=== PATIENT | female | born 1965 | race Caucasian/White ===

== ENCOUNTER → 2017-01-27 | Outpatient (CLI) | payer BC, OTHER ==
--- NOTE | 2017-01-27 13:28 | CR ---
EXAMINATION: Abdomen HISTORY: Pain COMPARISON: 07/24/2015 TECHNIQUE: AP and upright views FINDINGS: There is no free air under the diaphragm. There is a small amount of stool and gas through out the colon and no dilated loops of small bowel identified. No organomegaly. The visualized osseou s structures appear normal. IMPRESSION: 1. No dilated loops of small bowel identified to suggest a small bowel obstruction.
== END ==
LOC: MW.CHOBGYN 09:04
PROVIDERS: ATTEND Nurse Practitioner Women's Health
DX: R10.9 Unspecified abdominal pain (principal); R11.2 Nausea with vomiting, unspecified; R39.9 Unspecified symptoms and signs involving the genitourinary system; R39.198 Other difficulties with micturition; R31.9 Hematuria, unspecified
CPT/HCPCS: 36415; 74020; 74020-26; 81001; 85025; 87086; 88104

== ENCOUNTER 2017-04-20 22:01 | Day surgery (SDC) | payer OTHER ==
[2017-04-20] MEDS ORDERED: Glucagon,Human Recombinant 1 MG Vial IVPUSH ONE (22:29)
--- NOTE | 2017-04-20 22:49 | EDM.PDOC ---
ED HPI GENERAL MEDICAL PROBLEM - General Chief Complaint: ENT Problem Stated Complaint: PT HAS DIFFICULTY SWALLOWING Time Seen by Provider: 04/20/17 22:21 Source of Information: Reports: Patient History Limitations: Reports: No Limitations - History of Present Illness INITIAL COMMENTS - FREE TEXT/NARRATIVE: HISTORY AND PHYSICAL: History of present illness: [51-year-old female with a past medical history of dozens of transient suspected esophageal obstructions, presents emergency department complaining of inability to swallow her spit since last night. At dinnertime last night patient was eating steak and bread and perceived globus sensation. Since that time she is unable to swallow her spit show she's been spitting it in a bag. In the past patient has always had spontaneous resolution of her globus sensation. She has discussed it with doctors but never had a scope or upper GI evaluation. No abdominal pain. No fevers chills sweats or shaking chills. Denies respirations symptoms of any kind. Review of systems: As per history of present illness and below otherwise all systems reviewed and negative. Past medical history: As per history of present illness and as reviewed below otherwise noncontributory. Surgical history: As per history of present illness and as reviewed below otherwise noncontributory. Social history: No reported history of drug or alcohol abuse. Family history: As per history of present illness and as reviewed below otherwise noncontributory. Physical exam: Well-appearing female no acute distress spitting in a bag no stridor tachypnea or apparent respiratory HEENT: Normocephalic, atraumatic, pupils normal and symmetrical, supple neck, no meningismus, normal color Lungs: Normal and symmetrical chest wall excursion bilateral with no tachypnea or increased work of breathing, grossly normal chest exam Heart: No tachycardia in triage Abdomen: Normal-appearing, nondistended, no visible mass or asymmetry Pelvis: Normal-appearing Genitourinary: Deferred Rectal exam: Deferred Extremities: Atraumatic, normal use and range of motion, no visible evidence of gross neurovascular compromise Neuro: Awake, alert, oriented. Normal and appropriate mental status. Cranial nerves grossly unremarkable. Motor function normal. Nonfocal neurologic exam. Diagnostics: [] Therapeutics: [Gone given] Impression: [Esophageal obstruction] Plan: [Signs and symptoms consistent with esophageal obstruction a patient with a long history of similar symptoms which spontaneously resolved. Clinically this patient has an esophageal obstruction currently which persists after glucagon administration. 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 Vital signs stable] Definitive disposition and diagnosis as appropriate pending reevaluation and review of above. throat Pain Score (Numeric/FACES): 6 - Related Data Allergies Allergy/AdvReac Type Severity Reaction Status Date / Time No Known Allergies Allergy Verified 04/20/17 22:14 Home Meds: Home Meds . [No Known Home Meds] 05/20/15 [History] Social & Family History - Tobacco Use Smoking Status *Q: Never Smoker Second Hand Smoke Exposure: No - Alcohol Use Days Per Week of Alcohol Use: 0 Number of Drinks Per Day: 0 Total Drinks Per Week: 0 - Recreational Drug Use Recreational Drug Use: No Drug Use in Last 12 Months: No ED ROS GENERAL - Review of Systems Review Of Systems: See Below (History of present illness) ED EXAM, GENERAL - Physical Exam Exam: See Below (History of present illness) Course - Vital Signs Last Recorded V/S: Last Vital Signs Temp 36.3 C 04/20/17 22:14 Pulse 76 04/20/17 22:14 Resp 16 04/20/17 22:14 BP 141/88 H 04/20/17 22:14 Pulse Ox 100 04/20/17 22:14 - Orders/Labs/Meds Orders: Active Orders 24 hr Category Date Time Status Admission Status [Patient Status] [ADT] Stat ADT 04/20/17 23:26 Ordered NPO [Nothing Per Oral Diet] [DIET] Diet 04/20/17 Breakfast Ordered Meds: Medications Discontinued Medications Generic Name Dose Route Start Last Admin Trade Name Freq PRN Reason Stop Dose Admin Glucagon 1 mg 04/20/17 22:29 04/20/17 22:56 Glucagen IVPUSH 04/20/17 22:30 1 mg ONETIME ONE Administration Departure - Departure Time of Disposition: 22:48 Disposition: Refer to Observation Condition: Good Clinical Impression: Esophageal obstruction due to food impaction - Discharge Information Referrals: PCP,None [Primary Care Provider] - - My Orders Last 24 Hours: My Active Orders 04/20/17 23:26 Admission Status [Patient Status] [ADT] Stat 04/20/17 Breakfast NPO [Nothing Per Oral Diet] [DIET] - Assessment/Plan Last 24 Hours: My Active Orders 04/20/17 23:26 Admission Status [Patient Status] [ADT] Stat 04/20/17 Breakfast NPO [Nothing Per Oral Diet] [DIET]
--- NOTE | 2017-04-20 23:38 | PCM.HP ---
H&P History of Present Illness - General Date of Service: 04/20/17 Admit Problem/Dx: Admission Diagnosis/Problem Admission Diagnosis/Problem Esophageal dysphagia Source of Information: Patient History Limitations: Reports: No Limitations - History of Present Illness Initial Comments - Free Text/Narative: Patient is a 51 year old female who presents with a food bolus obstruction for > 24 hours. She has had food stuck in the past but it has always passed. Yesterday she was eating steak when it became lodged in her esophagus. She has been trying OTC remedies with no improvement. She is now vomiting her own saliva. She had a history of heartburn, but takes no medicine for it. She has a family history of brain cancer but no GI related cancers. She has never seen anyone for this problem. throat Pain Score (Numeric/FACES): 6 - Related Data Allergies/Adverse Reactions: Allergies Allergy/AdvReac Type Severity Reaction Status Date / Time No Known Allergies Allergy Verified 04/20/17 22:14 Home Medications: Home Meds . 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: Musculoskeletal History: Reports: None Neurological History: Reports: None Psychiatric History: Reports: None Endocrine/Metabolic History: Reports: None Hematologic History: Reports: None Immunologic History: Reports: None Oncologic (Cancer) History: Reports: None Dermatologic History: Reports: None - Infectious Disease History Infectious Disease History: Reports: None - Past Surgical History GI Surgical History: Reports: Hernia, Abdominal Female Surgical History: Reports: Hysterectomy Social & Family History - Family History Family Medical History: Noncontributory - Tobacco Use Smoking Status *Q: Never Smoker Second Hand Smoke Exposure: No - Alcohol Use Days Per Week of Alcohol Use: 0 Number of Drinks Per Day: 0 Total Drinks Per Week: 0 - Recreational Drug Use Recreational Drug Use: No Drug Use in Last 12 Months: No H&P Review of Systems - Review of Systems: Review Of Systems: ROS reveals no pertinent complaints other than HPI. Exam - Exam Exam: See Below - Vital Signs Vital Signs: Last Vital Signs Temp 36.3 C 04/20/17 22:14 Pulse 76 04/20/17 22:14 Resp 16 04/20/17 22:14 BP 141/88 H 04/20/17 22:14 Pulse Ox 100 04/20/17 22:14 Weight: 103 kg - Exam General: Alert, Oriented, Mild Distress Neck: Supple, Trachea Midline, Other (No crepitus) Lungs: Clear to Auscultation, Normal Respiratory Effort Cardiovascular: Regular Rate, Regular Rhythm Abdomen: Normal Bowel Sounds, Soft. No: Peritoneal Signs, Distention, Guarding , Rigidity, Rebound, Tenderness Extremities: Normal Inspection *Q Meaningful Use (ADM) - VTE *Q VTE Criteria *Q: - Stroke *Q Stroke Criteria *Q: - AMI *Q AMI Criteria *Q: - Problem List (1) Esophageal obstruction due to food impaction SNOMED Code(s): 572511735 ICD Code: K22.2 - ESOPHAGEAL OBSTRUCTION; T18.128A - FOOD IN ESOPHAGUS CAUSING OTHER INJURY, INITIAL ENCOUNTER Status: Acute Current Visit: Yes Problem List Initiated/Reviewed/Updated: Yes Orders Last 24hrs: Active Orders 24 hr Category Date Time Status Admission Status [Patient Status] [ADT] Stat ADT 04/20/17 23:26 Active NPO [Nothing Per Oral Diet] [DIET] Diet 04/20/17 Breakfast Active Assessment/Plan Comment:: Explained that we need to take her to the OR to remove this food bolus. She may have a stricture at the area but I will not dilate it in the setting of acute obstructions. She will need follow up work up with me. We discussed the EGD procedure, perioperative course and the risks including bleeding, infection or perforation. She verbalized understanding and wishes to proceed.
[2017-04-20] MEDS ORDERED: Ondansetron 4 MG/2 ML SDV ONE (23:56)
[2017-04-20] MEDS ORDERED: Rocuronium 10 MG/ML 10 ML Syringe ONE (23:56)
[2017-04-20] MEDS ORDERED: Lidocaine 2% 5 ML SDV ONE (23:56)
[2017-04-20] MEDS ORDERED: Propofol 200 MG/20 ML SDV ONE (23:56)
[2017-04-20] MEDS ORDERED: fentaNYL 250 MCG/5 ML SDV ONE (23:57)
[2017-04-20] MEDS ORDERED: Midazolam 1 MG/ML 2 ML SDV ONE (23:57)
--- NOTE | 2017-04-21 00:03 | PCM.PREANE ---
Preanesthetic Assessment - Anesthesia/Transfusion/Family Hx Anesthesia History: Prior Anesthesia Without Reaction Other Type of Anesthesia Reaction Comment: DENIES ANY PROBLEMS WITH ANESTHESIA Family History of Anesthesia Reaction: No Transfusion History: No Prior Transfusion(s) Intubation History: Unknown - Review of Systems General: Other (difficulty swallowing) Pulmonary: No Symptoms Cardiovascular: No Symptoms Gastrointestinal: Vomiting (spitting up food particles) Neurological: No Symptoms Other: Reports: Anxiety (r/t anesthesia - questions answered) - Physical Assessment O2 Sat by Pulse Oximetry: 100 Respiratory Rate: 16 Vital Signs: Last Vital Signs Temp 97.4 F 04/20/17 22:14 Pulse 76 04/20/17 22:14 Resp 16 04/20/17 22:14 BP 141/88 H 04/20/17 22:14 Pulse Ox 100 04/20/17 22:14 Height: 5 ft 8 in Weight: 227 lb 1.218 oz ASA Class: 2E Mental Status: Alert & Oriented x3 Airway Class: Mallampati = 2 (small mouth) Dentition: Reports: Normal Dentition Thyro-Mental Finger Breadths: 3 Mouth Opening Finger Breadths: 3 ROM/Head Extension: Full Lungs: Clear to auscultation, Normal respiratory effort Cardiovascular: Regular Rate, Regular Rhythm - Allergies Allergies/Adverse Reactions: Allergies Allergy/AdvReac Type Severity Reaction Status Date / Time No Known Allergies Allergy Verified 04/20/17 22:14 - Anesthesia Plan Free Text/Narrative:: GETA with RSI - Acknowledgements Anesthesia Type Planned: General Anesthesia Pt an Appropriate Candidate for the Planned Anesthesia: Yes Alternatives and Risks of Anesthesia Discussed w Pt/Guardian: Yes Pt/Guardian Understands and Agrees with Anesthesia Plan: Yes PreAnesthesia Questionnaire HEENT History: Reports: None Cardiovascular History: Reports: None Respiratory History: Reports: None Gastrointestinal History: Reports: None Genitourinary History: Reports: None 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: Musculoskeletal History: Reports: None Neurological History: Reports: None Psychiatric History: Reports: None Endocrine/Metabolic History: Reports: None, Obesity/BMI 30+ Hematologic History: Reports: None Immunologic History: Reports: None Oncologic (Cancer) History: Reports: None Dermatologic History: Reports: None - Infectious Disease History Infectious Disease History: Reports: None - Past Surgical History GI Surgical History: Reports: Hernia, Abdominal Female Surgical History: Reports: Hysterectomy - SUBSTANCE USE Smoking Status *Q: Never Smoker Tobacco Use Within Last Twelve Months: No Second Hand Smoke Exposure: No Days Per Week of Alcohol Use: 0 Number of Drinks Per Day: 0 Total Drinks Per Week: 0 Recreational Drug Use History: No - HOME MEDS Home Medications: Home Meds . [No Known Home Meds] 05/20/15 [History] - CURRENT (IN HOUSE) MEDS Current Meds: Current Medications Discontinued Medications Fentanyl (Sublimaze) Confirm Administered Dose 250 mcg .ROUTE .STK-MED ONE Stop: 04/20/17 23:58 Glucagon (Glucagen) 1 mg IVPUSH ONETIME ONE Stop: 04/20/17 22:30 Last Admin: 04/20/17 22:56 Dose: 1 mg Lidocaine (Xylocaine-Mpf 2%) Confirm Administered Dose 5 ml .ROUTE .STK-MED ONE Stop: 04/20/17 23:57 Midazolam HCl (Versed 1 Mg/Ml) Confirm Administered Dose 2 mg .ROUTE .STK-MED ONE Stop: 04/20/17 23:58 Ondansetron HCl (Zofran) Confirm Administered Dose 4 mg .ROUTE .STK-MED ONE Stop: 04/20/17 23:57 Propofol (Diprivan 20 Ml) Confirm Administered Dose 200 mg .ROUTE .STK-MED ONE Stop: 04/20/17 23:57 Rocuronium [place] (Zem[place]) Confirm Administered Dose 100 mg .ROUTE .STK-MED ONE Stop: 04/20/17 23:57
[2017-04-21] MEDS ORDERED: Succinylcholine/Normal Saline 200 MG/10 ML Syringe ONE (00:35)
[2017-04-21] MEDS ORDERED: Dexamethasone 4 MG/ML 5 ML MDV ONE (00:42)
[2017-04-21] MEDS ORDERED: Neostigmine Methylsulfate 1 MG/ML 5 ML Syringe ONE (01:12)
--- NOTE | 2017-04-21 01:14 | PCM.OPNOTE ---
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 Unable to pass scope Pre Op Diagnosis: Food bolus impaction Post-Op Diagnosis: Food bolus impaction, esophagitis, GE junction stricture Anesthesia Technique: General ET tube Primary Surgeon: Kesha Knox Condition: Fair
[2017-04-21] MEDS ORDERED: diphenhydrAMINE 50 MG/ML SDV IVPUSH PRN (01:20)
--- NOTE | 2017-04-21 01:29 | PCM.POSTAN ---
POST ANESTHESIA ASSESSMENT - MENTAL STATUS Mental Status: alert, oriented - VITAL SIGNS Pulse Rate: 68 SaO2: 99 Resp Rate: 14 Blood Pressure: 140/78 - RESPIRATORY Respiratory Status: respiratory rate WNL, airway patent, O2 saturation stable - CARDIOVASCULAR CV Status: pulse rate WNL, blood pressure stable - GASTROINTESTINAL GI Status: no symptoms - PAIN Pain Score: 0 - POST OP HYDRATION Hydration Status: adequate & stable - OBSERVATIONS Free Text/Narrative:: Pt stable with improved nausea after benadryl and no pain at this time. No apparent anesthesia complications.
--- NOTE | 2017-04-21 02:40 | PCM48HPAN ---
Post Anesthesia Note - EVALUATION WITHIN 48HRS OF ANESTHETIC Vital Signs in Normal Range: Yes Patient Participated in Evaluation: Yes Respiratory Function Stable: Yes Airway Patent: Yes Cardiovascular Function Stable: Yes Hydration Status Stable: Yes Pain Control Satisfactory: Yes Nausea and Vomiting Control Satisfactory: Yes Mental Status Recovered: Yes - COMMENTS/OBSERVATIONS Free Text/Narrative:: states she has been able to drink water with no nausea. VSS. No apparent anesthesia complications.
[2017-04-21 03:02] VITALS: BP 134/70
--- NOTE | 2017-04-21 03:11 | OR ---
SURGEON: ULYSSES FORRESTER MD DATE OF PROCEDURE: 04/21/2017 PREOPERATIVE DIAGNOSIS: Impacted food bolus in the esophagus. POSTOPERATIVE DIAGNOSES: Impacted food bolus in the esophagus, esophagitis, stricture at the GE junction. PROCEDURE PERFORMED: EGD with removal of esophageal food bolus. ANESTHESIA: General endotracheal anesthesia. INSTRUMENT USED: Olympus endoscope. EXTENT OF EXAM: To the GE junction. COMPLICATIONS: None. INDICATIONS: The patient is a 51-year-old female with a longstanding history of dysphagia. She was eating meat yesterday when it became impacted in her lower esophagus. She tried [id number] remedies with no improvement. She presented to the emergency room tonight with an inability to handle her secretions. The patient and I discussed the need for an emergent EGD with food bolus disimpaction. I explained the procedure as well as expected perioperative course. I explained the risks, including bleeding, infection, or perforation. The patient verbalized understanding and wished to proceed. PROCEDURE IN DETAIL: The patient was brought into the OR and placed in the OR cart in a beach chair position. A time-out was completed verifying the patient's name, age, date of , allergies, and procedure to be performed. General endotracheal anesthesia was induced. The patient was placed back in a beach chair position. A bite block was placed in the patient's mouth and an Olympus endoscope was advanced under direct visualization to about the mid esophagus. At this level, a white-appearing bolus of meat was noted. Using a tri prong grasper, I removed this in a piecemeal fashion via several passes. Once I got to the distal esophagus, I removed one last piece of very large-appearing meat. This then made apparent that the patient had a stricture at the GE junction as well as esophagitis and inflammation of the distal esophagus. There was no evidence of perforation. The patient had superficial bleeding but no large mucosal tears. I was unable to transverse the GE junction with my scope, however, I was able to look past the stricture and see slightly into the stomach. On gross inspection, it appeared normal. The scope was then removed from the patient and the procedure terminated. The patient was taken to the PACU in stable condition. ENDOSCOPIC DIAGNOSES: Food impaction, esophagitis, GE junction stricture. RECOMMENDATIONS: We will start the patient on pantoprazole 40 mg q.a.c. and refer her to [facility] for manometric testing and further studies as well as possible dilation in the future. DAVID / MODL /[id number]
== END 2017-04-21 02:50 | disposition home or self-care (01) ==
LOC: MW.ED 22:01 → MW.SDS 23:35
PROVIDERS: ATTEND Surgery
PROC: 0DC58ZZ Extirpation of Matter from Esophagus, Via Natural or Artificial Opening Endoscopic (ICD-10-PCS; principal; 2017-04-20)
DX: T18.128A Food in esophagus causing other injury, initial encounter (principal); K22.2 Esophageal obstruction; K20.9 Esophagitis, unspecified; K22.8 Other specified diseases of esophagus; E66.9 Obesity, unspecified; Z90.710 Acquired absence of both cervix and uterus; Z98.890 Other specified postprocedural states
CPT/HCPCS: 43247; 96374; 99285; J1100; J1610; J2250; J2405; J3010; 00740; J2704